=== PATIENT | female | born 1985 | race Caucasian/White ===

== ENCOUNTER 2022-05-29 19:58 | Emergency (ER) | payer SELFPAY ==
[2022-05-29 20:05] VITALS: BP 128/72; PULSE 90; RESP 20; BMI 28.3
[2022-05-29] MEDS ORDERED: KETOROLAC TROMETHAMINE 30 MG/1 ML VIAL IM ONE (20:44)
[2022-05-29] MEDS ORDERED: ACETAMINOPHEN 325 MG TABLET (FP) PO ONE (21:25)
[2022-05-29] MEDS ORDERED: ACETAMINOPHEN 325 MG TABLET (FP) ONE (21:31)
== END 2022-05-29 23:11 | disposition home or self-care (01) ==
LOC: JER 19:58
DX: S63.501A Unspecified sprain of right wrist, initial encounter (principal); Y99.8 Other external cause status
CPT/HCPCS: 73070-TC-RT-FY; 73090-TC-RT-FY; 73110-TC-RT-FY; 73130-TC-RT-FY; 99284-25

== ENCOUNTER 2022-06-01 19:25 | Emergency (ER) | payer SELFPAY ==
[2022-06-01 19:43] VITALS: BP 122/78; PULSE 85; RESP 20; TEMP 98.2; BMI 31.4
== END 2022-06-01 22:57 | disposition home or self-care (01) ==
LOC: JERFT 19:25
DX: S63.501A Unspecified sprain of right wrist, initial encounter (principal); X50.0XXA Overexertion from strenuous movement or load, initial encounter
CPT/HCPCS: 73110-TC-RT-FY; 73130-TC-RT-FY; 99283-25

== ENCOUNTER 2022-06-15 17:15 | Emergency (ER) | payer OTHER ==
[2022-06-15 17:51] VITALS: BP 136/84; PULSE 99; RESP 17; TEMP 97.8; BMI 32.4
== END 2022-06-15 21:07 | disposition home or self-care (01) ==
LOC: JERFT 17:15 → JER 17:15 → JERFT 21:07
DX: G56.01 Carpal tunnel syndrome, right upper limb (principal)
CPT/HCPCS: 99281-25

== ENCOUNTER 2022-06-26 21:56 | Emergency (ER) | payer OTHER ==
[2022-06-26] MEDS ORDERED: LIDOCAINE PATCH REMOVAL MC SCH (22:00)
[2022-06-26 22:05] VITALS: BP 130/90; PULSE 74; RESP 18; TEMP 98; BMI 32.4
[2022-06-26] MEDS ORDERED: METHOCARBAMOL 500 MG TABLET PO ONE (22:40)
[2022-06-26] MEDS ORDERED: ACETAMINOPHEN 500 MG TABLET (FP) PO ONE (22:40)
[2022-06-26] MEDS ORDERED: IBUPROFEN 600 MG TABLET (FP) PO ONE ×2 (22:40→23:15)
[2022-06-26] MEDS ORDERED: LIDOCAINE 5% TOPICAL PATCH TP ONE (22:41)
[2022-06-26] MEDS ORDERED: METHOCARBAMOL 500 MG TABLET ONE (23:15)
[2022-06-26] MEDS ORDERED: LIDOCAINE 5% TOPICAL PATCH ONE (23:16)
[2022-06-26] MEDS ORDERED: ACETAMINOPHEN 325 MG TABLET (FP) ONE (23:16)
== END 2022-06-27 00:34 | disposition home or self-care (01) ==
LOC: JER 21:56
DX: M62.838 Other muscle spasm (principal)
CPT/HCPCS: 71045-TC-FY; 71101-TC-RT-FY; 99284-25

== ENCOUNTER 2022-08-25 20:02 | Emergency (ER) | payer OTHER ==
[2022-08-25 20:14] VITALS: BP 124/71; PULSE 86; RESP 18; TEMP 98.5; BMI 31.4
== END 2022-08-25 21:42 | disposition home or self-care (01) ==
LOC: JERFT 20:02
DX: L50.9 Urticaria, unspecified (principal)
CPT/HCPCS: 99283-25

== ENCOUNTER 2022-08-26 18:49 | Emergency (ER) | payer OTHER ==
[2022-08-26 18:56] VITALS: BP 110/64; PULSE 85; RESP 17; TEMP 98.2; BMI 31.4
[2022-08-26] MEDS ORDERED: predniSONE 20 MG TABLET (UD) PO ONE (20:18)
[2022-08-26] MEDS ORDERED: predniSONE 10 MG TABLET (UD) ONE (20:18)
[2022-08-26] MEDS ORDERED: predniSONE 20 MG TABLET (UD) ONE (20:19)
== END 2022-08-26 21:25 | disposition home or self-care (01) ==
LOC: JERFT 18:49 → JER 18:49 → JERFT 19:49
DX: R21 Rash and other nonspecific skin eruption (principal)
CPT/HCPCS: 99283-25

== ENCOUNTER 2022-09-03 10:03 | Emergency (ER) | payer OTHER ==
[2022-09-03 10:13] VITALS: BP 110/60; PULSE 96; RESP 18; TEMP 98.1; BMI 31.4
[2022-09-03] MEDS ORDERED: IBUPROFEN 600 MG TABLET (FP) PO ONE (10:54)
== END 2022-09-03 11:51 | disposition home or self-care (01) ==
LOC: JERFT 10:03
DX: S92.414A Nondisplaced fracture of proximal phalanx of right great toe, initial encounter for closed fracture (principal); S90.31XA Contusion of right foot, initial encounter; V00.818A Other accident with wheelchair (powered), initial encounter
CPT/HCPCS: 73630-TC-LT; 99283-25

== ENCOUNTER 2022-09-03 19:08 | Emergency (ER) | payer OTHER ==
[2022-09-03 19:17] VITALS: BP 123/84; PULSE 112; RESP 18; TEMP 98; BMI 31.4
[2022-09-03] MEDS ORDERED: KETOROLAC TROMETHAMINE 30 MG/1 ML VIAL IM ONE (20:35)
[2022-09-03] MEDS ORDERED: KETOROLAC TROMETHAMINE 30 MG/1 ML VIAL ONE (20:44)
== END 2022-09-03 21:52 | disposition home or self-care (01) ==
LOC: JERFT 19:08
PROC: 3E0233Z Introduction of Anti-inflammatory into Muscle, Percutaneous Approach (ICD-10-PCS; principal; 2022-09-03)
DX: M79.672 Pain in left foot (principal)
CPT/HCPCS: 96372; 99284-25

== ENCOUNTER 2022-10-06 19:43 | Emergency (ER) | payer OTHER ==
[2022-10-06 19:46] VITALS: BP 136/96; PULSE 94; RESP 18; TEMP 98.5; BMI 33.5
[2022-10-06] MEDS ORDERED: CLINDAMYCIN HCL 150 MG CAPSULE (FP) PO ONE (22:15)
[2022-10-06] MEDS ORDERED: CLINDAMYCIN HCL 150 MG CAPSULE (FP) ONE (22:20)
== END 2022-10-06 22:32 | disposition home or self-care (01) ==
LOC: JERFT 19:43
DX: N61.1 Abscess of the breast and nipple (principal)
CPT/HCPCS: 76642-TC-LT; 93005; 93010; 99284-25

== ENCOUNTER 2022-11-05 12:46 | Emergency (ER) | payer OTHER ==
[2022-11-05 13:08] VITALS: RESP 20; BMI 31.4
[2022-11-05] MEDS ORDERED: ACETAMINOPHEN 1000 MG/100 ML BAG IVPB ONE (13:58)
[2022-11-05] MEDS ORDERED: ACETAMINOPHEN INJECTION 100 ML IVPB ONE (14:40)
[2022-11-05] MEDS ORDERED: LACTATED RINGERS SOLUTION 1,000 ML/1,000 ML INFUS.BAG IV STA (14:56)
[2022-11-05 15:27] LABS: BASO % 0.8 % (0-2.0); EOS % 0.3 % (0-4.5); HEMATOCRIT 39.5 % (32.4-45.2); LYMPH % 7.7 % (8-40); MCH 29.1 pg (25.7-33.7); MCHC 32.9 g/dl (32.0-36.0); MEAN CELL VOLUME 88.5 fl (80-96); MEAN PLT VOLUME 9.2 fl (7.5-11.1); MONO % 6.2 % (3.8-10.2); PLATELET COUNT 295 10^3/uL (134-434); RBC 4.46 M/mm3 (3.60-5.2); RDW 13.4 % (11.6-15.6)
[2022-11-05 15:31] LABS: EPI CELLS >36 /uL (0-25.1); HYALINE CASTS 2 /uL (0-3.1); URINE APPEARANCE CLOUDY; URINE BACTERIA >9,000 /uL (0-1359); URINE BILIRUBIN NEGATIVE (NEGATIVE); URINE COLOR YELLOW; URINE GLUCOSE (UA) NEGATIVE (NEGATIVE); URINE KETONE NEGATIVE (NEGATIVE); URINE LEUK ESTERASE 3+ (NEGATIVE); URINE NITRITE POSITIVE (NEGATIVE); URINE PROTEIN 1+ (NEGATIVE); URINE RBC 49 /uL (0-23.9); URINE UROBILINOGEN 0.2 mg/dL (0.2-1.0); URINE WBC 960 /uL (0-25.8)
[2022-11-05 15:46] LABS: CHLORIDE 104 mmol/L (98-107); SODIUM 134 mmol/L (136-145)
[2022-11-05 15:48] LABS: ALBUMIN 3.5 g/dl (3.4-5.0); ANION GAP 9 MMOL/L (8-16); BLOOD UREA NITROGEN 9.4 mg/dL (7-18); CALCIUM 8.7 mg/dL (8.5-10.1); CO2 21 mmol/L (21-32); GLUCOSE,RANDOM 82 mg/dL (74-106)
[2022-11-05 15:51] LABS: CREATININE 0.8 mg/dL (0.55-1.3); SGOT/AST 13 U/L (15-37); SGPT/ALT 15 U/L (13-61)
[2022-11-05 15:53] LABS: BILIRUBIN,TOTAL 0.6 mg/dL (0.2-1); TOT PROT 7.5 g/dl (6.4-8.2)
[2022-11-05 15:54] LABS: ALK PHOS 96 U/L (45-117)
[2022-11-05] MEDS ORDERED: CEFTRIAXONE 1 GM in DEXTROSE 5%-WATER - 100 ML IVPB ONE ×2 (16:25→17:12)
[2022-11-05] MEDS ORDERED: CEFTRIAXONE 1 GM/50 ML BAG ONE ×2 (16:37→17:16)
[2022-11-05 17:01] VITALS: BP 110/65; PULSE 109
[2022-11-05 17:30] VITALS: TEMP 100.4
== END 2022-11-05 18:25 | disposition left against medical advice (07) ==
LOC: JER 12:46 → UNDOADMIN 16:50 → JERBED 16:50 → JER 18:25
PROC: 3E033GC Introduction of Other Therapeutic Substance into Peripheral Vein, Percutaneous Approach (ICD-10-PCS; principal; 2022-11-05)
DX: N12 Tubulo-interstitial nephritis, not specified as acute or chronic (principal)
CPT/HCPCS: 0241U-QW; 71045-TC-FY; 76775-TC; 80053; 81003; 82553; 83605; 84484; 85025; 86850; 86900; 86901; 87040; 87086; 87186; 93005; 93010; 96361; 96365; 96375; 96376; 99285-25

== ENCOUNTER 2022-11-24 18:26 | Emergency (ER) | payer OTHER ==
[2022-11-24 19:02] VITALS: BP 138/84; PULSE 84; RESP 18; TEMP 97.5; BMI 32.3
[2022-11-24] MEDS ORDERED: KETOROLAC TROMETHAMINE 30 MG/1 ML VIAL IM ONE (20:23)
[2022-11-24] MEDS ORDERED: KETOROLAC TROMETHAMINE 30 MG/1 ML VIAL ONE (20:36)
== END 2022-11-24 21:16 | disposition home or self-care (01) ==
LOC: JERFT 18:26 → JER 18:26 → JERFT 21:16
DX: M54.50 Low back pain, unspecified (principal)
CPT/HCPCS: 72070-TC-FY; 72100-TC-FY; 99283-25

== ENCOUNTER 2022-12-03 19:16 | Emergency (ER) | payer OTHER ==
[2022-12-03 19:23] VITALS: BP 119/86; PULSE 89; RESP 17; TEMP 98.2; BMI 31.3
[2022-12-03] MEDS ORDERED: predniSONE 20 MG TABLET (UD) PO ONE (22:50)
[2022-12-03] MEDS ORDERED: predniSONE 20 MG TABLET (UD) ONE (22:54)
== END 2022-12-03 23:50 | disposition home or self-care (01) ==
LOC: JERFT 19:16
DX: L23.9 Allergic contact dermatitis, unspecified cause (principal)
CPT/HCPCS: 99283-25

== ENCOUNTER 2022-12-13 20:39 | Emergency (ER) | payer OTHER ==
[2022-12-13 20:49] VITALS: BP 139/96; PULSE 101; RESP 18; TEMP 98.2; BMI 31.4
[2022-12-13] MEDS ORDERED: CEFTRIAXONE 1 GM in DEXTROSE 5%-WATER - 100 ML IVPB ONE (21:12)
[2022-12-13] MEDS ORDERED: CEFTRIAXONE 1 GM/50 ML BAG ONE (21:49)
[2022-12-13 22:29] LABS: BASO % 0.8 % (0-2.0); EOS % 2.4 % (0-4.5); HEMATOCRIT 41.6 % (32.4-45.2); HEMOGLOBIN 14.5 GM/dL (10.7-15.3); LYMPH % 24.8 % (8-40); MCH 30.9 pg (25.7-33.7); MCHC 34.8 g/dl (32.0-36.0); MEAN CELL VOLUME 88.7 fl (80-96); MEAN PLT VOLUME 8.6 fl (7.5-11.1); MONO % 7.5 % (3.8-10.2); NEUT % 64.5 % (42.8-82.8); PLATELET COUNT 306 10^3/uL (134-434); RBC 4.69 M/mm3 (3.60-5.2); RDW 13.9 % (11.6-15.6); WHITE BLOOD COUNT 11.7 K/mm3 (4.0-10.0)
[2022-12-13 22:50] LABS: EPI CELLS >36 /uL (0-25.1); HYALINE CASTS 48 /uL (0-3.1); URINE APPEARANCE TURBID; URINE BACTERIA >9,000 /uL (0-1359); URINE BILIRUBIN NEGATIVE (NEGATIVE); URINE COLOR YELLOW; URINE GLUCOSE (UA) NEGATIVE (NEGATIVE); URINE KETONE NEGATIVE (NEGATIVE); URINE LEUK ESTERASE 3+ (NEGATIVE); URINE NITRITE POSITIVE (NEGATIVE); URINE PROTEIN NEGATIVE (NEGATIVE); URINE RBC 29 /uL (0-23.9); URINE UROBILINOGEN 0.2 mg/dL (0.2-1.0); URINE WBC 944 /uL (0-25.8)
[2022-12-13 22:53] LABS: CHLORIDE 106 mmol/L (98-107); SODIUM 134 mmol/L (136-145)
[2022-12-13 22:55] LABS: ALBUMIN 3.4 g/dl (3.4-5.0); CO2 23 mmol/L (21-32); GLUCOSE,RANDOM 86 mg/dL (74-106)
[2022-12-13 22:58] LABS: CREATININE 1.1 mg/dL (0.55-1.3); SGOT/AST 88 U/L (15-37)
[2022-12-13 23:00] LABS: BILIRUBIN,TOTAL 0.3 mg/dL (0.2-1)
[2022-12-13 23:01] LABS: ALK PHOS 98 U/L (45-117)
[2022-12-13 23:03] LABS: ANION GAP 4 MMOL/L (8-16); SGPT/ALT 30 U/L (13-61)
[2022-12-13 23:38] LABS: CALCIUM 8.9 mg/dL (8.5-10.1)
[2022-12-13 23:39] LABS: BLOOD UREA NITROGEN 21.6 mg/dL (7-18)
== END 2022-12-13 23:39 | disposition home or self-care (01) ==
LOC: JER 20:39
PROC: 3E033GC Introduction of Other Therapeutic Substance into Peripheral Vein, Percutaneous Approach (ICD-10-PCS; principal; 2022-12-13)
DX: N39.0 Urinary tract infection, site not specified (principal)
CPT/HCPCS: 36415; 80048; 80053; 81003; 84703; 85025; 87086; 87186; 96365; 99284-25

== ENCOUNTER 2022-12-26 18:21 | Emergency (ER) | payer OTHER ==
[2022-12-26 18:53] VITALS: BP 160/100; PULSE 65; RESP 18; TEMP 98; BMI 31.4
[2022-12-26] MEDS ORDERED: ACETAMINOPHEN 325 MG TABLET (FP) PO ONE (20:24)
[2022-12-26] MEDS ORDERED: ACETAMINOPHEN 325 MG TABLET (FP) ONE (20:56)
[2022-12-26] MEDS ORDERED: IBUPROFEN 600 MG TABLET (FP) PO ONE (20:57)
[2022-12-26] MEDS ORDERED: IBUPROFEN 400 MG TABLET (FP) PO ONE (21:00)
== END 2022-12-26 21:25 | disposition home or self-care (01) ==
LOC: JER 18:21
DX: M79.642 Pain in left hand (principal)
CPT/HCPCS: 73090-TC-LT-FY; 73110-TC-LT-FY; 73130-TC-LT-FY; 99283-25

== ENCOUNTER 2023-01-03 10:39 | Emergency (ER) | payer OTHER ==
[2023-01-03 10:51] VITALS: BMI 31.4
[2023-01-03] MEDS ORDERED: ACETAMINOPHEN 500 MG TABLET (FP) PO ONE (11:51)
[2023-01-03] MEDS ORDERED: ONDANSETRON *ODT* 4 MG TABLET SL ONE (11:51)
[2023-01-03] MEDS ORDERED: ONDANSETRON *ODT* 4 MG TABLET ONE (11:54)
[2023-01-03] MEDS ORDERED: ACETAMINOPHEN 325 MG TABLET (FP) ONE (11:55)
[2023-01-03 12:23] LABS: HCG,QUALITATIVE URINE Negative
[2023-01-03 12:27] LABS: EPI CELLS >36 /uL (0-25.1); HYALINE CASTS 2 /uL (0-3.1); PH,URINE 7.5 (5.0-8.0); URINE APPEARANCE CLOUDY; URINE BACTERIA >9,000 /uL (0-1359); URINE BILIRUBIN NEGATIVE (NEGATIVE); URINE COLOR YELLOW; URINE GLUCOSE (UA) NEGATIVE (NEGATIVE); URINE KETONE NEGATIVE (NEGATIVE); URINE LEUK ESTERASE 2+ (NEGATIVE); URINE NITRITE POSITIVE (NEGATIVE); URINE PROTEIN TRACE (NEGATIVE); URINE RBC 17 /uL (0-23.9); URINE UROBILINOGEN 0.2 mg/dL (0.2-1.0); URINE WBC 656 /uL (0-25.8)
[2023-01-03 12:34] LABS: YEAST NEGATIVE (NEGATIVE)
[2023-01-03 14:35] VITALS: BP 114/68; PULSE 79; RESP 16; TEMP 97.7
== END 2023-01-03 14:35 | disposition home or self-care (01) ==
LOC: JER 10:39
DX: N39.0 Urinary tract infection, site not specified (principal); R11.0 Nausea; R30.0 Dysuria
CPT/HCPCS: 81003; 84703; 87086; 87186; 99283-25; Q0162

== ENCOUNTER 2023-01-15 20:30 | Emergency (ER) | payer OTHER ==
[2023-01-15 20:37] VITALS: BP 144/86; PULSE 84; RESP 20; TEMP 98.1; BMI 31.4
[2023-01-15] MEDS ORDERED: KETOROLAC TROMETHAMINE 30 MG/1 ML VIAL IM ONE (21:53)
[2023-01-15] MEDS ORDERED: KETOROLAC TROMETHAMINE 30 MG/1 ML VIAL ONE (21:56)
[2023-01-15] MEDS ORDERED: IBUPROFEN 400 MG TABLET (FP) PO ONE ×2 (22:23→22:25)
== END 2023-01-15 22:31 | disposition home or self-care (01) ==
LOC: JERFT 20:30
PROC: 3E0233Z Introduction of Anti-inflammatory into Muscle, Percutaneous Approach (ICD-10-PCS; principal; 2023-01-15)
DX: S69.92XA Unspecified injury of left wrist, hand and finger(s), initial encounter (principal); X58.XXXA Exposure to other specified factors, initial encounter
CPT/HCPCS: 73110-TC-LT-FY; 96372; 99284-25

== ENCOUNTER 2023-01-18 15:34 | Emergency (ER) | payer OTHER ==
[2023-01-18 15:38] VITALS: BP 114/79; PULSE 75; RESP 18; TEMP 98.1; BMI 31.4
[2023-01-18] MEDS ORDERED: ACETAMINOPHEN 500 MG TABLET (FP) PO ONE (16:12)
[2023-01-18] MEDS ORDERED: ACETAMINOPHEN 500 MG TABLET (FP) ONE (16:21)
[2023-01-18 16:48] LABS: THROAT:GRP A STREP NOT DETECTED (NOTDETECTED)
== END 2023-01-18 17:30 | disposition home or self-care (01) ==
LOC: JER 15:34
DX: J01.90 Acute sinusitis, unspecified (principal); J02.9 Acute pharyngitis, unspecified; R09.81 Nasal congestion; R50.9 Fever, unspecified; Z20.822 Contact with and (suspected) exposure to COVID-19
CPT/HCPCS: 0241U-QW; 87651; 99283-25

== ENCOUNTER 2023-01-25 18:58 | Emergency (ER) | payer OTHER ==
[2023-01-25 19:10] VITALS: BP 124/74; PULSE 84; RESP 18; TEMP 98.2; BMI 31.4
[2023-01-25 20:38] LABS: EPI CELLS >36 /uL (0-25.1); HYALINE CASTS 4 /uL (0-3.1); PH,URINE 6.5 (5.0-8.0); URINE APPEARANCE TURBID; URINE BACTERIA >9,000 /uL (0-1359); URINE BILIRUBIN NEGATIVE (NEGATIVE); URINE COLOR YELLOW; URINE GLUCOSE (UA) NEGATIVE (NEGATIVE); URINE KETONE NEGATIVE (NEGATIVE); URINE LEUK ESTERASE 3+ (NEGATIVE); URINE NITRITE POSITIVE (NEGATIVE); URINE PROTEIN NEGATIVE (NEGATIVE); URINE RBC 21 /uL (0-23.9); URINE UROBILINOGEN 0.2 mg/dL (0.2-1.0); URINE WBC 689 /uL (0-25.8)
[2023-01-25] MEDS ORDERED: CEFUROXIME AXETIL 500 MG TABLET PO ONE (20:55)
== END 2023-01-25 21:54 | disposition home or self-care (01) ==
LOC: JER 18:58
PROC: 0T9B70Z Drainage of Bladder with Drainage Device, Via Natural or Artificial Opening (ICD-10-PCS; principal; 2023-01-25)
DX: R33.9 Retention of urine, unspecified (principal)
CPT/HCPCS: 51701; 76775-TC; 76856-TC; 81003; 87086; 87186; 99284-25

== ENCOUNTER 2023-03-05 09:33 | Emergency (ER) | payer OTHER ==
[2023-03-05] MEDS ORDERED: IBUPROFEN 400 MG TABLET (FP) PO PRN (09:45)
[2023-03-05] MEDS ORDERED: ACETAMINOPHEN 500 MG TABLET (FP) PO ONE (09:45)
[2023-03-05] MEDS ORDERED: LIDOCAINE 5% TOPICAL PATCH TP ONE (09:45)
[2023-03-05] MEDS ORDERED: LIDOCAINE 5% TOPICAL PATCH ONE (09:56)
[2023-03-05] MEDS ORDERED: ACETAMINOPHEN 325 MG TABLET (FP) ONE (09:56)
[2023-03-05 10:30] VITALS: RESP 18; TEMP 98.1; BMI 32.4
[2023-03-05 12:21] VITALS: BP 119/73; PULSE 78
[2023-03-05] MEDS ORDERED: LIDOCAINE PATCH REMOVAL MC ONE (22:00)
== END 2023-03-05 13:06 | disposition home or self-care (01) ==
LOC: JER 09:33
DX: S22.31XA Fracture of one rib, right side, initial encounter for closed fracture (principal); W22.8XXA Striking against or struck by other objects, initial encounter; W05.0XXA Fall from non-moving wheelchair, initial encounter
CPT/HCPCS: 71046-TC-FY; 71101-TC-RT-FY; 99284-25

== ENCOUNTER 2023-03-10 17:16 | Emergency (ER) | payer OTHER ==
[2023-03-10 17:27] VITALS: BP 158/91; PULSE 69; RESP 16; TEMP 98.4; BMI 38.9
[2023-03-10] MEDS ORDERED: IBUPROFEN 600 MG TABLET (FP) PO ONE ×3 (18:13→18:28)
[2023-03-10] MEDS ORDERED: LIDOCAINE 5% TOPICAL PATCH TP ONE (18:13)
[2023-03-10] MEDS ORDERED: LIDOCAINE 5% TOPICAL PATCH ONE (18:23)
[2023-03-10] MEDS ORDERED: LIDOCAINE PATCH REMOVAL MC SCH (22:00)
== END 2023-03-10 19:30 | disposition home or self-care (01) ==
LOC: JERFT 17:16
DX: R07.81 Pleurodynia (principal); R07.9 Chest pain, unspecified; M54.9 Dorsalgia, unspecified; W05.0XXA Fall from non-moving wheelchair, initial encounter; Y93.I9 Activity, other involving external motion; Y92.009 Unspecified place in unspecified non-institutional (private) residence as the place of occurrence of the external cause
CPT/HCPCS: 71101-TC-RT-FY; 99283-25

== ENCOUNTER 2023-04-03 16:50 | Emergency (ER) | payer OTHER ==
[2023-04-03 17:04] VITALS: BP 139/87; PULSE 99; RESP 18; TEMP 98; BMI 34.6
[2023-04-03 19:35] LABS: THROAT:GRP A STREP NOT DETECTED (NOTDETECTED)
== END 2023-04-03 21:01 | disposition home or self-care (01) ==
LOC: JERFT 16:50
DX: H57.11 Ocular pain, right eye (principal); R21 Rash and other nonspecific skin eruption; H10.9 Unspecified conjunctivitis; Z20.822 Contact with and (suspected) exposure to COVID-19
CPT/HCPCS: 0241U-QW; 87070; 87651; 99283-25

== ENCOUNTER 2023-04-10 09:16 | Emergency (ER) | payer OTHER ==
[2023-04-10 09:25] VITALS: RESP 20
[2023-04-10] MEDS ORDERED: ACETAMINOPHEN 1000 MG/100 ML BAG IVPB ONE (09:52)
[2023-04-10] MEDS ORDERED: METOCLOPRAMIDE HCL INJECTION 10 MG/2 ML VIAL IVPUSH ONE (09:53)
[2023-04-10] MEDS ORDERED: LACTATED RINGERS SOLUTION 1,000 ML/1,000 ML INFUS.BAG IV SCH (10:00)
[2023-04-10] MEDS ORDERED: METOCLOPRAMIDE HCL INJECTION 10 MG/2 ML VIAL ONE (10:07)
[2023-04-10] MEDS ORDERED: ACETAMINOPHEN INJECTION 100 ML IVPB ONE (10:08)
[2023-04-10 11:13] LABS: BASO % 0.4 % (0-2.0); EOS % 0.2 % (0-4.5); HEMATOCRIT 44.7 % (32.4-45.2); LYMPH % 10.2 % (8-40); MCH 29.1 pg (25.7-33.7); MCHC 33.5 g/dl (32.0-36.0); MEAN CELL VOLUME 86.9 fl (80-96); MEAN PLT VOLUME 8.5 fl (7.5-11.1); MONO % 3.1 % (3.8-10.2); NEUT % 86.1 % (42.8-82.8); PLATELET COUNT 398 10^3/uL (134-434); RBC 5.14 M/mm3 (3.60-5.2); RDW 13.4 % (11.6-15.6); WHITE BLOOD COUNT 15.8 K/mm3 (4.0-10.0)
[2023-04-10 12:07] LABS: POTASSIUM 4.9 mmol/L (3.5-5.1)
[2023-04-10 12:09] LABS: CALCIUM 9.9 mg/dL (8.5-10.1)
[2023-04-10 12:10] LABS: ALBUMIN 4.1 g/dl (3.4-5.0)
[2023-04-10 12:12] LABS: CREATININE 0.9 mg/dL (0.55-1.3)
[2023-04-10 12:14] LABS: BILIRUBIN,TOTAL 0.6 mg/dL (0.2-1); TOT PROT 8.6 g/dl (6.4-8.2)
[2023-04-10 13:16] LABS: EPI CELLS >36 /uL (0-25.1); HYALINE CASTS 1 /uL (0-3.1); PH,URINE 5.5 (5.0-8.0); URINE APPEARANCE CLOUDY; URINE BACTERIA >9,000 /uL (0-1359); URINE BILIRUBIN NEGATIVE (NEGATIVE); URINE COLOR YELLOW; URINE GLUCOSE (UA) NEGATIVE (NEGATIVE); URINE KETONE 1+ (NEGATIVE); URINE LEUK ESTERASE 1+ (NEGATIVE); URINE NITRITE POSITIVE (NEGATIVE); URINE PROTEIN NEGATIVE (NEGATIVE); URINE RBC 15 /uL (0-23.9); URINE UROBILINOGEN 0.2 mg/dL (0.2-1.0); URINE WBC 300 /uL (0-25.8)
[2023-04-10] MEDS ORDERED: CEFTRIAXONE 1,000 MG in DEXTROSE 5%-WATER - 50 ML IVPB ONE (13:19)
[2023-04-10] MEDS ORDERED: DEXTROSE 5% IVPB ONE (13:25)
[2023-04-10] MEDS ORDERED: CEFUROXIME SODIUM IVPB ONE (13:25)
[2023-04-10] MEDS ORDERED: WATER IVPB ONE (13:25)
[2023-04-10] MEDS ORDERED: CEFUROXIME NA 750 MG VIAL ONE (13:37)
[2023-04-10 13:39] VITALS: BP 128/91; PULSE 81; TEMP 97.8
== END 2023-04-10 14:10 | disposition home or self-care (01) ==
LOC: JER 09:16
PROC: 3E03329 Introduction of Other Anti-infective into Peripheral Vein, Percutaneous Approach (ICD-10-PCS; principal; 2023-04-10)
PROC: 3E033GC Introduction of Other Therapeutic Substance into Peripheral Vein, Percutaneous Approach (ICD-10-PCS; 2023-04-10)
PROC: 3E033GC Introduction of Other Therapeutic Substance into Peripheral Vein, Percutaneous Approach (ICD-10-PCS; 2023-04-10)
DX: R11.2 Nausea with vomiting, unspecified (principal); G43.909 Migraine, unspecified, not intractable, without status migrainosus; N39.0 Urinary tract infection, site not specified
CPT/HCPCS: 36415; 80053; 81003; 83735; 85025; 87086; 87186; 96365; 96375; 99284-25

== ENCOUNTER 2023-06-01 13:55 | Emergency (ER) | payer OTHER ==
[2023-06-01 14:01] VITALS: BMI 33.2
[2023-06-01] MEDS ORDERED: SODIUM CHLORIDE 0.9% 1000 ML INFUS.BAG IV ONE (15:26)
[2023-06-01] MEDS ORDERED: ONDANSETRON 4 MG/2 ML VIAL IVPUSH ONE (15:26)
[2023-06-01 15:33] VITALS: BP 135/93; PULSE 83; RESP 16; TEMP 98.1
[2023-06-01 15:37] LABS: EPI CELLS >36 /uL (0-25.1); HYALINE CASTS 1 /uL (0-3.1); PH,URINE 6.5 (5.0-8.0); URINE APPEARANCE CLEAR; URINE BACTERIA >9,000 /uL (0-1359); URINE BILIRUBIN NEGATIVE (NEGATIVE); URINE COLOR YELLOW; URINE GLUCOSE (UA) NEGATIVE (NEGATIVE); URINE KETONE TRACE (NEGATIVE); URINE LEUK ESTERASE 2+ (NEGATIVE); URINE NITRITE POSITIVE (NEGATIVE); URINE PROTEIN NEGATIVE (NEGATIVE); URINE RBC 17 /uL (0-23.9); URINE UROBILINOGEN 0.2 mg/dL (0.2-1.0); URINE WBC 81 /uL (0-25.8)
[2023-06-01 15:38] LABS: HCG,QUALITATIVE URINE Negative
== END 2023-06-01 16:10 | disposition left against medical advice (07) ==
LOC: JER 13:55
PROC: 3E033NZ Introduction of Analgesics, Hypnotics, Sedatives into Peripheral Vein, Percutaneous Approach (ICD-10-PCS; principal; 2023-06-01)
DX: N39.0 Urinary tract infection, site not specified (principal); R11.10 Vomiting, unspecified
CPT/HCPCS: 81003; 82962; 84703; 87086; 87186; 96374; 99284-25

== ENCOUNTER 2023-06-08 19:47 | Emergency (ER) | payer OTHER ==
[2023-06-08 20:00] VITALS: BP 110/68; PULSE 89; RESP 20; TEMP 98.6; BMI 32.2
[2023-06-08] MEDS ORDERED: predniSONE 20 MG TABLET (UD) PO ONE (21:06)
[2023-06-08] MEDS ORDERED: ALBUTEROL SO4 0.083% IH SOL 2.5 MG/3 ML VIAL.NEB. NEB ONE (21:39)
[2023-06-08] MEDS ORDERED: predniSONE 20 MG TABLET (UD) ONE (21:39)
[2023-06-08] MEDS: ALBUTEROL SO4 2.5/IPRATROPIUM 0.5 INH SOL 3 ML VIAL.NEB. NEB SCH ×2 (21:54→21:55)
== END 2023-06-09 00:19 | disposition home or self-care (01) ==
LOC: JER 19:47
PROC: 3E0F7GC Introduction of Other Therapeutic Substance into Respiratory Tract, Via Natural or Artificial Opening (ICD-10-PCS; principal; 2023-06-08)
DX: R06.02 Shortness of breath (principal); R05.9 Cough, unspecified; J45.909 Unspecified asthma, uncomplicated; Z20.822 Contact with and (suspected) exposure to COVID-19
CPT/HCPCS: 0241U-QW; 71045-TC-FY; 94640; 99284-25

== ENCOUNTER 2023-06-25 16:09 | Emergency (ER) | payer OTHER ==
[2023-06-25 16:42] VITALS: TEMP 98.2
[2023-06-25 18:02] VITALS: BP 137/88; PULSE 90; RESP 14
[2023-06-25 18:30] LABS: EPI CELLS 13 /uL (0-25.1); HYALINE CASTS 1 /uL (0-3.1); URINE APPEARANCE CLOUDY; URINE BACTERIA >9,000 /uL (0-1359); URINE BILIRUBIN NEGATIVE (NEGATIVE); URINE COLOR YELLOW; URINE GLUCOSE (UA) NEGATIVE (NEGATIVE); URINE KETONE NEGATIVE (NEGATIVE); URINE LEUK ESTERASE 2+ (NEGATIVE); URINE NITRITE NEGATIVE (NEGATIVE); URINE PROTEIN NEGATIVE (NEGATIVE); URINE RBC 10 /uL (0-23.9); URINE UROBILINOGEN 0.2 mg/dL (0.2-1.0); URINE WBC 220 /uL (0-25.8)
[2023-06-25 18:55] LABS: EOS % 4.4 % (0-4.5); HEMATOCRIT 39.9 % (32.4-45.2); HEMOGLOBIN 13.6 GM/dL (10.7-15.3); LYMPH % 21.1 % (8-40); MCH 30.4 pg (25.7-33.7); MCHC 34.1 g/dl (32.0-36.0); MEAN CELL VOLUME 89.2 fl (80-96); MEAN PLT VOLUME 9.5 fl (7.5-11.1); MONO % 7.3 % (3.8-10.2); NEUT % 66.2 % (42.8-82.8); PLATELET COUNT 308 10^3/uL (134-434); RBC 4.47 M/mm3 (3.60-5.2); RDW 14.3 % (11.6-15.6); WHITE BLOOD COUNT 10.3 K/mm3 (4.0-10.0)
[2023-06-25 19:02] LABS: INR 1.02 (0.83-1.09); PROTHROMBIN TIME (PATIENT) 11.8 SEC (9.7-13.0)
[2023-06-25 19:05] LABS: ACTIVATED PTT 33.2 SECONDS (25.2-36.5)
[2023-06-25 19:09] LABS: CHLORIDE 109 mmol/L (98-107); POTASSIUM 4.3 mmol/L (3.5-5.1); SODIUM 140 mmol/L (136-145)
[2023-06-25 19:13] LABS: CALCIUM 8.4 mg/dL (8.5-10.1)
[2023-06-25 19:14] LABS: ALBUMIN 3.6 g/dl (3.4-5.0); ANION GAP 7 MMOL/L (8-16); CO2 23 mmol/L (21-32)
[2023-06-25 19:15] LABS: BLOOD UREA NITROGEN 11.1 mg/dL (7-18); GLUCOSE,RANDOM 78 mg/dL (74-106)
[2023-06-25 19:17] LABS: CREATININE 0.9 mg/dL (0.55-1.3); SGOT/AST 19 U/L (15-37); SGPT/ALT 21 U/L (13-61)
[2023-06-25 19:19] LABS: CHOLESTEROL 187 mg/dL (50-200); LDL CHOLESTEROL (ONLY SJRH) 126 mg/dL (5-100); TOT PROT 7.1 g/dl (6.4-8.2)
[2023-06-25 19:20] LABS: BILIRUBIN,TOTAL 0.3 mg/dL (0.2-1)
[2023-06-25 19:21] LABS: ALK PHOS 98 U/L (45-117); HDL CHOLESTEROL 41 mg/dL (40-60)
== END 2023-06-25 19:13 | disposition left against medical advice (07) ==
LOC: JER 16:09
DX: M54.9 Dorsalgia, unspecified (principal); R53.1 Weakness; R20.2 Paresthesia of skin; M25.521 Pain in right elbow; M25.531 Pain in right wrist
CPT/HCPCS: 36415; 70450-TC; 80053; 80061; 81003; 82550; 82962; 83036; 84484; 85025; 85610; 85730; 86850; 86900; 86901; 93005; 93010; 99285-25

== ENCOUNTER 2023-06-30 19:29 | Observation (INO) | payer OTHER ==
[2023-06-30 19:41] VITALS: BMI 25.5
[2023-06-30] MEDS ORDERED: SUCRALFATE 1 GM TABLET (FP) PO ONE (20:25)
[2023-06-30] MEDS ORDERED: ONDANSETRON 4 MG/2 ML VIAL IVPUSH ONE (20:25)
[2023-06-30] MEDS ORDERED: MAG HYDROX/AL HYDROX/SIMETH -MYLANTA- ORAL SUSPENSION PO ONE (20:25)
[2023-06-30] MEDS ORDERED: LACTATED RINGERS SOLUTION 1000 ML INFUS.BAG IV ONE (20:25)
[2023-06-30] MEDS ORDERED: ACETAMINOPHEN 1000 MG/100 ML BAG IVPB ONE (20:25)
[2023-06-30] MEDS ORDERED: FAMOTIDINE 20 MG/50 ML IVPB 20 MG/50 ML MG IVPB ONE ×2 (20:25→22:44)
[2023-06-30 22:06] LABS: HEMOGLOBIN 15.5 GM/dL (10.7-15.3); MCH 30.2 pg (25.7-33.7); MCHC 33.6 g/dl (32.0-36.0); MEAN CELL VOLUME 89.8 fl (80-96); MEAN PLT VOLUME 9.3 fl (7.5-11.1); PLATELET COUNT 380 10^3/uL (134-434); RBC 5.12 M/mm3 (3.60-5.2); WHITE BLOOD COUNT 14.8 K/mm3 (4.0-10.0)
[2023-06-30 22:17] LABS: POTASSIUM 4.1 mmol/L (3.5-5.1)
[2023-06-30 22:19] LABS: CALCIUM 9.2 mg/dL (8.5-10.1)
[2023-06-30 22:20] LABS: BLOOD UREA NITROGEN 17.2 mg/dL (7-18); MAGNESIUM 1.9 mg/dL (1.8-2.4)
[2023-06-30 22:24] LABS: BILIRUBIN,TOTAL 0.7 mg/dL (0.2-1); TOT PROT 8.6 g/dl (6.4-8.2)
[2023-06-30] MEDS ORDERED: SUCRALFATE 1 GM TABLET (FP) ONE (22:43)
[2023-06-30] MEDS ORDERED: ACETAMINOPHEN INJECTION 100 ML IVPB ONE (22:43)
[2023-06-30] MEDS ORDERED: MAG HYDROX/AL HYDROX/SIMETH 30 ML UNIT-DOSE CUP ONE (22:44)
[2023-06-30] MEDS ORDERED: ONDANSETRON 4 MG/2 ML VIAL ONE (22:44)
[2023-06-30 22:53] LABS: ANISOCYTOSIS 0; MACROCYTOSIS 0
[2023-07-01 08:15] LABS: URINE APPEARANCE CLOUDY; URINE BILIRUBIN NEGATIVE (NEGATIVE); URINE COLOR YELLOW; URINE GLUCOSE (UA) NEGATIVE (NEGATIVE); URINE KETONE 15 mg/dl (NEGATIVE)
[2023-07-01 08:16] LABS: PH,URINE 5.5 (5.0-8.0); URINE LEUK ESTERASE TRACE (NEGATIVE); URINE NITRITE POSITIVE (NEGATIVE); URINE PROTEIN TRACE (NEGATIVE); URINE UROBILINOGEN 1.055 mg/dL (0.2-1.0)
[2023-07-01] MEDS ORDERED: IMIPENEM/CILASTATIN SODIUM 500 MG in SODIUM CHLORIDE 100 ML IV ONE (08:44)
[2023-07-01] MEDS ORDERED: DEXTROSE 5%-0.45% SALINE 1,000 ML IV SCH (08:45)
[2023-07-01] MEDS ORDERED: ONDANSETRON 4 MG/2 ML VIAL IVPUSH PRN ×2 (10:20→15:04)
[2023-07-01] MEDS ORDERED: LACTATED RINGERS SOLUTION 1,000 ML/1,000 ML INFUS.BAG IV SCH ×2 (10:45→15:04)
[2023-07-01] MEDS ORDERED: INSULIN SLIDING SCALE (NOVOLOG) 1 VIAL SQ SCH (11:00)
[2023-07-01] MEDS ORDERED: BUPIVACAINE HCL/PF 0.25% (2.5MG/ML) 10 ML VIAL ONE (12:15)
[2023-07-01] MEDS ORDERED: BUPIVACAINE HCL/PF 0.25% (2.5MG/ML) 10 ML VIAL IJ ONE ×2 (12:27→14:08)
[2023-07-01] MEDS ORDERED: PROPOFOL 20 ML ONE (12:35)
[2023-07-01] MEDS ORDERED: ROCURONIUM BROMIDE 50 MG/5 ML SYRINGE ONE (12:35)
[2023-07-01] MEDS ORDERED: ALBUTEROL SO4 HFA INHALER IH ONE (13:25)
[2023-07-01] MEDS ORDERED: HYDROmorphone HCl 2 MG/ML VIAL ONE (13:38)
[2023-07-01] MEDS ORDERED: oxyCODONE HCL 5 MG TABLET PO PRN (15:05)
[2023-07-01] MEDS ORDERED: ACETAMINOPHEN 1000 MG/100 ML BAG IVPB SCH (15:15)
[2023-07-01 16:53] VITALS: RESP 20
[2023-07-01 17:46] VITALS: BP 111/97; PULSE 77; TEMP 97.2
[2023-07-01] MEDS ORDERED: HEPARIN NA (PORCINE) 5,000 UNITS/ML 1ML VIAL SQ SCH (22:00)
[2023-07-01] MEDS ORDERED: FAMOTIDINE 20 MG/50 ML IVPB 20 MG/50 ML MG IVPB SCH (22:00)
[2023-07-02] MEDS ORDERED: ERTAPENEM SODIUM 1 GM in SODIUM CHLORIDE 50 ML IVPB SCH ×2 (10:00→16:00)
[2023-07-02] MEDS ORDERED: ACETAMINOPHEN 325 MG TABLET (FP) PO PRN (13:00)
== END 2023-07-01 18:00 | disposition left against medical advice (07) | DRG 342 ==
LOC: JER 19:29 → JERBED 07-01 10:16 → INTOOBSV 07-01 10:16 → J8W 07-01 16:03 → JERBED 07-01 16:05
PROVIDERS: ADMIT Internal Medicine; ATTEND Internal Medicine
PROC: 0DTJ4ZZ Resection of Appendix, Percutaneous Endoscopic Approach (ICD-10-PCS; principal; 2023-07-01 13:00)
DX: K35.890 Other acute appendicitis without perforation or gangrene (principal); G82.20 Paraplegia, unspecified; R11.2 Nausea with vomiting, unspecified; I10 Essential (primary) hypertension; E11.9 Type 2 diabetes mellitus without complications; F17.210 Nicotine dependence, cigarettes, uncomplicated
CPT/HCPCS: 0241U-QW; 36415; 71045-TC-FY; 74177-TC; 76705-TC; 80053; 81003; 82962; 83690; 83735; 84484; 84703; 85025; 87086; 87186; 88304-TC; 93005; 93010; 94760; 99285-25; G0378

== ENCOUNTER 2023-08-13 19:08 | Emergency (ER) | payer OTHER ==
[2023-08-13 20:10] VITALS: BMI 21.8
[2023-08-13] MEDS ORDERED: LIDOCAINE 4% PATCH TP ONE ×2 (20:12→21:59)
[2023-08-13] MEDS ORDERED: ACETAMINOPHEN 500 MG TABLET (FP) PO ONE (20:22)
[2023-08-13] MEDS ORDERED: SODIUM CHLORIDE 1,000 ML IV SCH (20:30)
[2023-08-13] MEDS ORDERED: ACETAMINOPHEN 325 MG TABLET (FP) ONE (21:59)
[2023-08-13 22:21] LABS: INR 1.04 (0.83-1.09); PROTHROMBIN TIME (PATIENT) 12.1 SEC (9.7-13.0)
[2023-08-13 22:24] LABS: ACTIVATED PTT 22.4 SECONDS (25.2-36.5)
[2023-08-13 22:31] LABS: BASO % 0.4 % (0-2.0); EOS % 0.2 % (0-4.5); HEMATOCRIT 45.8 % (32.4-45.2); HEMOGLOBIN 15.5 GM/dL (10.7-15.3); LYMPH % 15.7 % (8-40); MCHC 33.8 g/dl (32.0-36.0); MEAN CELL VOLUME 88.9 fl (80-96); MEAN PLT VOLUME 10.5 fl (7.5-11.1); MONO % 5.5 % (3.8-10.2); NEUT % 78.2 % (42.8-82.8); PLATELET COUNT 225 10^3/uL (134-434); RBC 5.15 M/mm3 (3.60-5.2); RDW 13.2 % (11.6-15.6); WHITE BLOOD COUNT 15.6 K/mm3 (4.0-10.0)
[2023-08-13 22:33] LABS: MAGNESIUM 1.9 mg/dL (1.8-2.4)
[2023-08-13 22:34] LABS: CALCIUM 9.7 mg/dL (8.5-10.1)
[2023-08-13 22:35] LABS: ALBUMIN 3.9 g/dl (3.4-5.0); BLOOD UREA NITROGEN 16.2 mg/dL (7-18)
[2023-08-13 22:37] LABS: CREATININE 0.9 mg/dL (0.55-1.3)
[2023-08-13 22:40] LABS: BILIRUBIN,TOTAL 0.8 mg/dL (0.2-1)
[2023-08-13 22:42] VITALS: BP 107/79; PULSE 90; RESP 20; TEMP 97.8
[2023-08-14] MEDS ORDERED: LIDOCAINE PATCH REMOVAL MC SCH (09:00)
== END 2023-08-14 00:41 | disposition left against medical advice (07) ==
LOC: JER 19:08
DX: R20.2 Paresthesia of skin (principal); M54.9 Dorsalgia, unspecified; F41.9 Anxiety disorder, unspecified
CPT/HCPCS: 36415; 70450-TC; 71045-TC-FY; 72125-TC; 80053; 80061; 82550; 82962; 83036; 83735; 84484; 84703; 85025; 85610; 85730; 86850; 86900; 86901; 93005; 93010; 99285-25

== ENCOUNTER 2023-09-30 11:35 | Emergency (ER) | payer OTHER ==
[2023-09-30 11:49] VITALS: BP 122/74; PULSE 82; RESP 18; TEMP 98.4; BMI 21.8
[2023-09-30] MEDS ORDERED: IBUPROFEN 600 MG TABLET (FP) PO ONE ×2 (12:41→12:51)
[2023-09-30 14:24] LABS: EPI CELLS 29 /uL (0-25.1); HYALINE CASTS 2 /uL (0-3.1); PH,URINE 6.5 (5.0-8.0); URINE APPEARANCE CLOUDY; URINE BACTERIA >9,000 /uL (0-1359); URINE BILIRUBIN NEGATIVE (NEGATIVE); URINE COLOR YELLOW; URINE GLUCOSE (UA) NEGATIVE (NEGATIVE); URINE KETONE 1+ (NEGATIVE); URINE LEUK ESTERASE 1+ (NEGATIVE); URINE NITRITE POSITIVE (NEGATIVE); URINE PROTEIN NEGATIVE (NEGATIVE); URINE RBC 52 /uL (0-23.9); URINE WBC 234 /uL (0-25.8)
== END 2023-09-30 15:25 | disposition home or self-care (01) ==
LOC: JER 11:35
DX: R07.9 Chest pain, unspecified (principal); R10.9 Unspecified abdominal pain; N39.0 Urinary tract infection, site not specified; U07.1 COVID-19
CPT/HCPCS: 0241U-QW; 71045-TC-FY; 81003; 87086; 93005; 93010; 99284-25

== ENCOUNTER 2023-10-11 22:57 | Observation (INO) | payer OTHER ==
[2023-10-11] MEDS ORDERED: FAMOTIDINE 20 MG/50 ML IVPB 20 MG/50 ML MG IVPB ONE ×2 (23:33→23:39)
[2023-10-11] MEDS ORDERED: ACETAMINOPHEN 1000 MG/100 ML BAG IVPB ONE (23:33)
[2023-10-11] MEDS ORDERED: SODIUM CHLORIDE 0.9% 500 ML INFUS.BAG IV ONE (23:33)
[2023-10-11] MEDS ORDERED: ONDANSETRON 4 MG/2 ML VIAL IVPUSH ONE (23:33)
[2023-10-11] MEDS ORDERED: ACETAMINOPHEN INJECTION 100 ML IVPB ONE (23:39)
[2023-10-11] MEDS ORDERED: ONDANSETRON 4 MG/2 ML VIAL ONE (23:39)
[2023-10-11] MEDS ORDERED: MAG HYDROX/AL HYDROX/SIMETH 30 ML UNIT-DOSE CUP PO ONE (23:48)
[2023-10-12 00:05] LABS: BASO % 0.2 % (0-2.0); EOS % 0.3 % (0-4.5); HEMOGLOBIN 13.9 GM/dL (10.7-15.3); LYMPH % 6.2 % (8-40); MCH 29.9 pg (25.7-33.7); MCHC 33.1 g/dl (32.0-36.0); MEAN CELL VOLUME 90.4 fl (80-96); MONO % 3.9 % (3.8-10.2); NEUT % 89.4 % (42.8-82.8); PLATELET COUNT 310 10^3/uL (134-434); RBC 4.65 M/mm3 (3.60-5.2); RDW 13.8 % (11.6-15.6); WHITE BLOOD COUNT 19.9 K/mm3 (4.0-10.0)
[2023-10-12 00:24] LABS: CHLORIDE 106 mmol/L (98-107); POTASSIUM 4.5 mmol/L (3.5-5.1); SODIUM 136 mmol/L (136-145)
[2023-10-12 00:26] LABS: CALCIUM 9.1 mg/dL (8.5-10.1)
[2023-10-12 00:27] LABS: ALBUMIN 3.9 g/dl (3.4-5.0); ANION GAP 8 mmol/L (4-13); BLOOD UREA NITROGEN 15.4 mg/dL (7-18); CO2 23 mmol/L (21-32); GLUCOSE,RANDOM 108 mg/dL (74-106); LIPASE 75 U/L (73-393)
[2023-10-12 00:29] LABS: SGPT/ALT 15 U/L (13-61)
[2023-10-12 00:30] LABS: CREATININE 0.8 mg/dL (0.55-1.3); SGOT/AST 28 U/L (15-37)
[2023-10-12 00:31] LABS: BILIRUBIN,TOTAL 0.4 mg/dL (0.2-1); TOT PROT 7.8 g/dl (6.4-8.2)
[2023-10-12 00:32] LABS: ALK PHOS 110 U/L (45-117)
[2023-10-12] MEDS ORDERED: morphine CARPU-JECT 2 MG/1 ML DISP.SYRIN IVPUSH ONE (02:12)
[2023-10-12 02:27] LABS: EPI CELLS 27 /uL (0-25.1); HYALINE CASTS 1 /uL (0-3.1); URINE APPEARANCE CLOUDY; URINE BACTERIA >9,000 /uL (0-1359); URINE BILIRUBIN NEGATIVE (NEGATIVE); URINE COLOR YELLOW; URINE GLUCOSE (UA) NEGATIVE (NEGATIVE); URINE KETONE 1+ (NEGATIVE); URINE LEUK ESTERASE TRACE (NEGATIVE); URINE NITRITE NEGATIVE (NEGATIVE); URINE PROTEIN NEGATIVE (NEGATIVE); URINE RBC 8 /uL (0-23.9); URINE WBC 118 /uL (0-25.8)
[2023-10-12] MEDS ORDERED: CEFTRIAXONE 1 GM/50 ML BAG ONE ×2 (02:51→09:16)
[2023-10-12 05:55] LABS: BASO % 0.5 % (0-2.0); EOS % 0.2 % (0-4.5); LYMPH % 9.5 % (8-40); MCHC 32.6 g/dl (32.0-36.0); MEAN CELL VOLUME 91.9 fl (80-96); NEUT % 84.8 % (42.8-82.8); PLATELET COUNT 294 10^3/uL (134-434); RBC 4.35 M/mm3 (3.60-5.2); RDW 13.5 % (11.6-15.6); WHITE BLOOD COUNT 15.1 K/mm3 (4.0-10.0)
[2023-10-12 06:12] LABS: CHLORIDE 106 mmol/L (98-107); POTASSIUM 3.9 mmol/L (3.5-5.1); SODIUM 135 mmol/L (136-145)
[2023-10-12 06:14] LABS: ALBUMIN 3.7 g/dl (3.4-5.0); ANION GAP 7 mmol/L (4-13); BLOOD UREA NITROGEN 10.5 mg/dL (7-18); CO2 22 mmol/L (21-32); GLUCOSE,RANDOM 109 mg/dL (74-106)
[2023-10-12] MEDS: SODIUM CHLORIDE 1,000 ML IV SCH (06:16)
[2023-10-12 06:17] LABS: CREATININE 0.7 mg/dL (0.55-1.3); SGPT/ALT 14 U/L (13-61)
[2023-10-12] MEDS: ACETAMINOPHEN 1000 MG/100 ML BAG IVPB PRN ×4 (06:17→17:47)
[2023-10-12 06:18] LABS: PHENCYCLIDINE,URINE NEGATIVE (NEGATIVE); SGOT/AST 13 U/L (15-37); URINE BARBITURATES NEGATIVE (NEGATIVE); URINE BENZODIAZEPINES NEGATIVE (NEGATIVE)
[2023-10-12 06:19] LABS: TOT PROT 7.2 g/dl (6.4-8.2)
[2023-10-12 06:20] LABS: ALK PHOS 104 U/L (45-117)
[2023-10-12 06:21] LABS: BILIRUBIN,TOTAL 0.3 mg/dL (0.2-1); COCAINE, UR NEGATIVE (NEGATIVE); METHADONE, UR NEGATIVE (NEGATIVE); OPIATES, URI NEGATIVE (NEGATIVE); URINE AMPHETAMINES NEGATIVE (NEGATIVE)
[2023-10-12] MEDS: CEFTRIAXONE 1 GM in DEXTROSE 5%-WATER - 50 ML IVPB SCH (06:28)
[2023-10-12] MEDS: ONDANSETRON 4 MG/2 ML VIAL IVPUSH PRN ×4 (06:44→17:47)
[2023-10-12] MEDS ORDERED: ONDANSETRON 4 MG/2 ML VIAL ONE ×4 (06:45→17:34)
[2023-10-12] MEDS ORDERED: ALBUTEROL SO4 2.5/IPRATROPIUM 0.5 INH SOL 3 ML VIAL.NEB. NEB PRN (08:28)
[2023-10-12] MEDS ORDERED: PATIENT'S OWN MEDICATION (NON-FORMULARY) (Albuterol Sulfate [Proair Respiclick] 90 MCG Aer IH PRN ×2 (08:28→10:34)
[2023-10-12] MEDS ORDERED: ACETAMINOPHEN INJECTION 100 ML IVPB ONE ×3 (08:35→17:34)
[2023-10-12] MEDS ORDERED: ENOXAPARIN NA (PORCINE) 40 MG/0.4 ML DISP.SYRIN SQ ONE (09:16)
[2023-10-12] MEDS: ENOXAPARIN NA (PORCINE) 40 MG/0.4 ML DISP.SYRIN SQ SCH (09:18)
[2023-10-12] MEDS ORDERED: ALBUTEROL SO4 HFA INHALER IH PRN (16:29)
[2023-10-12] MEDS ORDERED: ALBUTEROL SO4 2.5/IPRATROPIUM 0.5 INH SOL 3 ML VIAL.NEB. NEB ONE (19:25)
[2023-10-12] MEDS ORDERED: LIDOCAINE 5% TOPICAL PATCH TP SCH (19:45)
[2023-10-12] MEDS ORDERED: LIDOCAINE 4% PATCH TP ONE (20:00)
[2023-10-12] MEDS ORDERED: LIDOCAINE 4% PATCH TP SCH (20:09)
[2023-10-12] MEDS ORDERED: MELATONIN 5 MG TABLETS PO ONE (21:52)
[2023-10-12] MEDS ORDERED: LIDOCAINE PATCH REMOVAL MC SCH (22:00)
[2023-10-12] MEDS ORDERED: MELATONIN 5 MG TABLETS ONE (22:18)
[2023-10-13] MEDS: ACETAMINOPHEN 1000 MG/100 ML BAG IVPB PRN (00:28)
[2023-10-13 01:40] VITALS: RESP 20; BMI 20.9
[2023-10-13] MEDS: ACETAMINOPHEN 325 MG TABLET (FP) PO PRN ×2 (06:48→14:07)
[2023-10-13 07:50] VITALS: BP 134/95; PULSE 70; TEMP 98.7
[2023-10-13] MEDS: SODIUM CHLORIDE 1,000 ML IV SCH (08:36)
[2023-10-13] MEDS ORDERED: CEFTRIAXONE 1 GM in DEXTROSE 5%-WATER - 50 ML IVPB SCH (10:00)
[2023-10-13] MEDS: CEFTRIAXONE 1 GM in DEXTROSE 5%-WATER - 50 ML IVPB SCH (10:02)
[2023-10-13] MEDS: ENOXAPARIN NA (PORCINE) 40 MG/0.4 ML DISP.SYRIN SQ SCH (10:02)
== END 2023-10-13 16:22 | disposition left against medical advice (07) ==
LOC: JER 22:57 → JERBED 10-12 02:11 → UNDODISOB 10-12 10:11 → J5S 10-12 23:32
PROVIDERS: ADMIT Internal Medicine; ATTEND Internal Medicine
PROC: 3E033NZ Introduction of Analgesics, Hypnotics, Sedatives into Peripheral Vein, Percutaneous Approach (ICD-10-PCS; principal; 2023-10-12)
PROC: 3E0F7GC Introduction of Other Therapeutic Substance into Respiratory Tract, Via Natural or Artificial Opening (ICD-10-PCS; 2023-10-12)
PROC: 3E03329 Introduction of Other Anti-infective into Peripheral Vein, Percutaneous Approach (ICD-10-PCS; 2023-10-12)
PROC: 3E023GC Introduction of Other Therapeutic Substance into Muscle, Percutaneous Approach (ICD-10-PCS; 2023-10-12)
PROC: 3E023NZ Introduction of Analgesics, Hypnotics, Sedatives into Muscle, Percutaneous Approach (ICD-10-PCS; 2023-10-12)
PROC: 3E0337Z Introduction of Electrolytic and Water Balance Substance into Peripheral Vein, Percutaneous Approach (ICD-10-PCS; 2023-10-12)
DX: N39.0 Urinary tract infection, site not specified (principal); S24.102S Unspecified injury at T2-T6 level of thoracic spinal cord, sequela; M54.9 Dorsalgia, unspecified; R10.32 Left lower quadrant pain; F41.9 Anxiety disorder, unspecified; Z72.0 Tobacco use; Z87.440 Personal history of urinary (tract) infections; Z88.0 Allergy status to penicillin; Z88.8 Allergy status to other drugs, medicaments and biological substances; X58.XXXA Exposure to other specified factors, initial encounter; Y93.89 Activity, other specified; Y92.89 Other specified places as the place of occurrence of the external cause
CPT/HCPCS: 0241U-QW; 36415; 71045-TC-FY; 71250-TC; 74176-TC; 76705-TC; 80053; 80307; 81003; 82962; 83690; 83735; 84702; 85025; 87040; 87086; 87186; 93005; 93010; 94640; 96361; 96365; 96367; 96372; 96375; 96376; 97161-GP; 99285-25; G0378

== ENCOUNTER 2023-10-16 21:03 | Emergency (ER) | payer OTHER ==
[2023-10-16 21:24] VITALS: BP 150/63; PULSE 62; RESP 18; TEMP 98.3; BMI 21.8
[2023-10-16] MEDS ORDERED: SODIUM CHLORIDE 0.9% 500 ML INFUS.BAG IV ONE ×2 (22:29→22:45)
[2023-10-16] MEDS ORDERED: FAMOTIDINE 20 MG/50 ML IVPB 20 MG/50 ML MG IVPB ONE (22:45)
[2023-10-16] MEDS ORDERED: HYDROmorphone HCl 2 MG/ML VIAL IVPUSH ONE (22:45)
[2023-10-16] MEDS ORDERED: ONDANSETRON 4 MG/2 ML VIAL IVPUSH ONE (22:45)
[2023-10-17] MEDS ORDERED: FAMOTIDINE 20 MG/50 ML IVPB 20 MG/50 ML MG IVPB ONE (01:33)
[2023-10-17] MEDS ORDERED: ONDANSETRON 4 MG/2 ML VIAL ONE (01:33)
[2023-10-17] MEDS ORDERED: HYDROmorphone HCl 2 MG/ML VIAL ONE (01:33)
[2023-10-17 02:26] LABS: BASO % 0.8 % (0-2.0); EOS % 0.2 % (0-4.5); HEMATOCRIT 41.8 % (32.4-45.2); HEMOGLOBIN 14.3 GM/dL (10.7-15.3); LYMPH % 29.1 % (8-40); MCH 31.2 pg (25.7-33.7); MCHC 34.2 g/dl (32.0-36.0); MEAN CELL VOLUME 91.3 fl (80-96); MEAN PLT VOLUME 8.8 fl (7.5-11.1); MONO % 12.7 % (3.8-10.2); NEUT % 57.2 % (42.8-82.8); PLATELET COUNT 362 10^3/uL (134-434); RBC 4.58 M/mm3 (3.60-5.2); RDW 13.6 % (11.6-15.6); WHITE BLOOD COUNT 6.9 K/mm3 (4.0-10.0)
[2023-10-17 02:30] LABS: PH,URINE 7.5 (5.0-8.0); URINE APPEARANCE CLEAR; URINE BILIRUBIN NEGATIVE (NEGATIVE); URINE COLOR YELLOW; URINE GLUCOSE (UA) NEGATIVE (NEGATIVE); URINE KETONE 1+ (NEGATIVE); URINE LEUK ESTERASE NEGATIVE (NEGATIVE); URINE NITRITE NEGATIVE (NEGATIVE); URINE PROTEIN NEGATIVE (NEGATIVE); URINE UROBILINOGEN 0.2 mg/dL (0.2-1.0)
[2023-10-17] MEDS ORDERED: HYDROmorphone HCl 2 MG/ML VIAL IVPUSH ONE (02:30)
[2023-10-17] MEDS ORDERED: ONDANSETRON 4 MG/2 ML VIAL IVPB ONE (02:31)
[2023-10-17 02:41] LABS: POTASSIUM 4.2 mmol/L (3.5-5.1)
[2023-10-17 02:44] LABS: ALBUMIN 4.1 g/dl (3.4-5.0); BLOOD UREA NITROGEN 7.7 mg/dL (7-18)
[2023-10-17 02:47] LABS: CREATININE 0.8 mg/dL (0.55-1.3)
[2023-10-17 02:48] LABS: BILIRUBIN,TOTAL 0.4 mg/dL (0.2-1)
[2023-10-17 02:49] LABS: TOT PROT 8.2 g/dl (6.4-8.2)
[2023-10-17 03:04] LABS: CALCIUM 9.5 mg/dL (8.5-10.1)
[2023-10-17] MEDS ORDERED: DOXYCYCLINE HYCLATE 100 MG CAPSULE PO ONE ×2 (05:37→05:40)
[2023-10-17] MEDS ORDERED: cefTRIAXone SODIUM 1 GM VIAL ONE (05:41)
== END 2023-10-17 06:11 | disposition home or self-care (01) ==
LOC: JER 21:03
PROC: 3E033GC Introduction of Other Therapeutic Substance into Peripheral Vein, Percutaneous Approach (ICD-10-PCS; principal; 2023-10-17)
PROC: 3E033GC Introduction of Other Therapeutic Substance into Peripheral Vein, Percutaneous Approach (ICD-10-PCS; 2023-10-17)
PROC: 3E033GC Introduction of Other Therapeutic Substance into Peripheral Vein, Percutaneous Approach (ICD-10-PCS; 2023-10-17)
PROC: 3E023GC Introduction of Other Therapeutic Substance into Muscle, Percutaneous Approach (ICD-10-PCS; 2023-10-17)
DX: R10.9 Unspecified abdominal pain (principal); L50.9 Urticaria, unspecified; R42 Dizziness and giddiness; K51.20 Ulcerative (chronic) proctitis without complications; Z20.822 Contact with and (suspected) exposure to COVID-19
CPT/HCPCS: 0241U-QW; 36415; 74177-TC; 80053; 81003; 82550; 83605; 84443; 84484; 84703; 85025; 87086; 87186; 93005; 93010; 96365; 96372; 96375; 99285-25; Q9967

== ENCOUNTER 2024-02-02 13:49 | Emergency (ER) | payer OTHER ==
[2024-02-02 14:09] VITALS: RESP 18; BMI 21.8
[2024-02-02] MEDS ORDERED: ONDANSETRON 4 MG/2 ML VIAL ONE (15:13)
[2024-02-02] MEDS ORDERED: FAMOTIDINE 20 MG/50 ML IVPB 20 MG/50 ML MG IVPB ONE (15:13)
[2024-02-02] MEDS ORDERED: ACETAMINOPHEN INJECTION 100 ML IVPB ONE ×2 (15:13→20:46)
[2024-02-02] MEDS: SODIUM CHLORIDE 0.9% 500 ML INFUS.BAG IV ONE ×2 (15:21→21:12)
[2024-02-02] MEDS: ACETAMINOPHEN 1000 MG/100 ML BAG IVPB ONE ×2 (15:21→21:12)
[2024-02-02] MEDS: ONDANSETRON 4 MG/2 ML VIAL IVPUSH ONE (15:22)
[2024-02-02] MEDS: FAMOTIDINE 20 MG/50 ML IVPB 20 MG/50 ML MG IVPB ONE (15:22)
[2024-02-02 16:08] LABS: BASO % 0.5 % (0-2.0); EOS % 0.1 % (0-4.5); HEMATOCRIT 37.1 % (32.4-45.2); HEMOGLOBIN 12.5 GM/dL (10.7-15.3); MCH 30.9 pg (25.7-33.7); MCHC 33.7 g/dl (32.0-36.0); MEAN CELL VOLUME 91.6 fl (80-96); MEAN PLT VOLUME 8.9 fl (7.5-11.1); MONO % 4.8 % (3.8-10.2); NEUT % 84.6 % (42.8-82.8); PLATELET COUNT 276 10^3/uL (134-434); RBC 4.05 M/mm3 (3.60-5.2); RDW 13.9 % (11.6-15.6); WHITE BLOOD COUNT 11.8 K/mm3 (4.0-10.0)
[2024-02-02 16:59] LABS: POTASSIUM 3.7 mmol/L (3.5-5.1)
[2024-02-02 17:01] LABS: CALCIUM 8.1 mg/dL (8.5-10.1)
[2024-02-02 17:02] LABS: ALBUMIN 3.3 g/dl (3.4-5.0); BLOOD UREA NITROGEN 13.4 mg/dL (7-18)
[2024-02-02 17:05] LABS: CREATININE 0.7 mg/dL (0.55-1.3)
[2024-02-02 17:06] LABS: BILIRUBIN,TOTAL 0.5 mg/dL (0.2-1); TOT PROT 6.4 g/dl (6.4-8.2)
[2024-02-02 17:51] LABS: EPI CELLS >36 /uL (0-25.1); HYALINE CASTS 2 /uL (0-3.1); PH,URINE 6.5 (5.0-8.0); URINE APPEARANCE TURBID; URINE BACTERIA >9,000 /uL (0-1359); URINE BILIRUBIN NEGATIVE (NEGATIVE); URINE COLOR YELLOW; URINE GLUCOSE (UA) NEGATIVE (NEGATIVE); URINE KETONE 2+ (NEGATIVE); URINE LEUK ESTERASE 2+ (NEGATIVE); URINE NITRITE POSITIVE (NEGATIVE); URINE PROTEIN TRACE (NEGATIVE); URINE RBC 39 /uL (0-23.9); URINE WBC 736 /uL (0-25.8)
[2024-02-02 18:07] VITALS: BP 120/69; PULSE 61; TEMP 97.7
[2024-02-02] MEDS ORDERED: VANCOMYCIN 1 GRAM (PRE-DOCKED) 1,000 MG/250 ML BAG IVPB ONE (19:54)
[2024-02-02] MEDS ORDERED: CEFTRIAXONE 1 GM/50 ML BAG ONE (19:54)
[2024-02-02] MEDS: CEFTRIAXONE 1,000 MG in DEXTROSE 5%-WATER - 50 ML IVPB ONE (20:24)
[2024-02-02] MEDS ORDERED: METOCLOPRAMIDE HCL INJECTION 10 MG/2 ML VIAL ONE (20:45)
[2024-02-02] MEDS: VANCOMYCIN 1,000 MG in DEXTROSE 5%-WATER - 250 ML IVPB ONE (20:57)
[2024-02-02] MEDS: METOCLOPRAMIDE HCL INJECTION 10 MG/2 ML VIAL IVPB ONE (20:57)
== END 2024-02-02 22:49 | disposition admitted as inpatient to this hospital (09) ==
LOC: JER 13:49
PROC: 3E03329 Introduction of Other Anti-infective into Peripheral Vein, Percutaneous Approach (ICD-10-PCS; principal; 2024-02-02)
PROC: 3E03329 Introduction of Other Anti-infective into Peripheral Vein, Percutaneous Approach (ICD-10-PCS; 2024-02-02)
PROC: 3E03329 Introduction of Other Anti-infective into Peripheral Vein, Percutaneous Approach (ICD-10-PCS; 2024-02-02)
PROC: 3E033GC Introduction of Other Therapeutic Substance into Peripheral Vein, Percutaneous Approach (ICD-10-PCS; 2024-02-02)
PROC: 3E033GC Introduction of Other Therapeutic Substance into Peripheral Vein, Percutaneous Approach (ICD-10-PCS; 2024-02-02)
PROC: 3E033GC Introduction of Other Therapeutic Substance into Peripheral Vein, Percutaneous Approach (ICD-10-PCS; 2024-02-02)
PROC: 3E033NZ Introduction of Analgesics, Hypnotics, Sedatives into Peripheral Vein, Percutaneous Approach (ICD-10-PCS; 2024-02-02)
PROC: 3E033NZ Introduction of Analgesics, Hypnotics, Sedatives into Peripheral Vein, Percutaneous Approach (ICD-10-PCS; 2024-02-02)
DX: R11.2 Nausea with vomiting, unspecified (principal); R10.13 Epigastric pain; R30.0 Dysuria; R32 Unspecified urinary incontinence; N39.0 Urinary tract infection, site not specified; Z20.822 Contact with and (suspected) exposure to COVID-19
CPT/HCPCS: 0241U-QW; 36415; 71045-TC-FY; 74177-TC; 80053; 81003; 82962; 83690; 84703; 85025; 87086; 87186; 93005; 93010; 99285-25; J0131; Q9967

== ENCOUNTER 2024-02-04 14:29 | Emergency (ER) | payer OTHER ==
[2024-02-04 15:11] VITALS: BP 143/76; PULSE 73; RESP 20; TEMP 97.5; BMI 21.6
[2024-02-04] MEDS ORDERED: ACETAMINOPHEN 325 MG TABLET (FP) ONE (18:16)
[2024-02-04] MEDS: ACETAMINOPHEN 325 MG TABLET (FP) PO ONE (18:19)
[2024-02-04 18:44] LABS: EPI CELLS >36 /uL (0-25.1); HYALINE CASTS 4 /uL (0-3.1); PH,URINE 5.5 (5.0-8.0); URINE APPEARANCE CLEAR; URINE BACTERIA 21 /uL (0-1359); URINE BILIRUBIN NEGATIVE (NEGATIVE); URINE COLOR YELLOW; URINE GLUCOSE (UA) NEGATIVE (NEGATIVE); URINE KETONE 2+ (NEGATIVE); URINE LEUK ESTERASE 1+ (NEGATIVE); URINE NITRITE NEGATIVE (NEGATIVE); URINE PROTEIN NEGATIVE (NEGATIVE); URINE RBC 14 /uL (0-23.9); URINE UROBILINOGEN 0.2 mg/dL (0.2-1.0); URINE WBC 73 /uL (0-25.8)
[2024-02-04] MEDS ORDERED: METHOCARBAMOL 500 MG TABLET ONE (20:01)
[2024-02-04] MEDS: METHOCARBAMOL 500 MG TABLET PO ONE (20:06)
== END 2024-02-04 21:24 | disposition home or self-care (01) ==
LOC: JER 14:29
DX: N39.0 Urinary tract infection, site not specified (principal); R10.9 Unspecified abdominal pain; R50.9 Fever, unspecified; M54.9 Dorsalgia, unspecified; F41.9 Anxiety disorder, unspecified
CPT/HCPCS: 81003; 87086; 93005; 93010; 99284-25

== ENCOUNTER 2024-02-09 21:57 | Emergency (ER) | payer OTHER ==
[2024-02-09 22:03] VITALS: BMI 21.8
[2024-02-10] LABS: EPI CELLS >36 /uL (0-25.1); HYALINE CASTS 0 /uL (0-3.1); URINE APPEARANCE CLEAR; URINE BACTERIA 2195 /uL (0-1359); URINE BILIRUBIN NEGATIVE (NEGATIVE); URINE COLOR YELLOW; URINE GLUCOSE (UA) NEGATIVE (NEGATIVE); URINE KETONE NEGATIVE (NEGATIVE); URINE LEUK ESTERASE NEGATIVE (NEGATIVE); URINE NITRITE POSITIVE (NEGATIVE); URINE PROTEIN NEGATIVE (NEGATIVE); URINE RBC 5 /uL (0-23.9); URINE UROBILINOGEN 0.2 mg/dL (0.2-1.0); URINE WBC 17 /uL (0-25.8)
[2024-02-10 00:01] LABS: HCG,QUALITATIVE URINE Negative
[2024-02-10] MEDS ORDERED: METHOCARBAMOL 500 MG TABLET ONE (00:06)
[2024-02-10] MEDS: METHOCARBAMOL 500 MG TABLET PO ONE (00:10)
[2024-02-10] MEDS ORDERED: LORazepam 0.5 MG TABLET ONE (01:19)
[2024-02-10] MEDS: LORazepam 2 MG TABLET PO ONE (01:24)
[2024-02-10] MEDS ORDERED: ONDANSETRON 4 MG/2 ML VIAL ONE (01:52)
[2024-02-10] MEDS: ONDANSETRON 4 MG/2 ML VIAL IVPUSH ONE (02:14)
[2024-02-10 03:40] VITALS: BP 129/90; PULSE 105; RESP 16; TEMP 98.4
== END 2024-02-10 03:42 | disposition home or self-care (01) ==
LOC: JER 21:57
PROC: 3E030GC Introduction of Other Therapeutic Substance into Peripheral Vein, Open Approach (ICD-10-PCS; principal; 2024-02-10)
DX: N30.00 Acute cystitis without hematuria (principal); M54.50 Low back pain, unspecified; R10.30 Lower abdominal pain, unspecified
CPT/HCPCS: 81003; 84703; 87086; 87186; 99284-25

== ENCOUNTER 2024-02-11 20:29 | Emergency (ER) | payer OTHER ==
[2024-02-11 20:35] VITALS: BP 126/81; PULSE 88; RESP 20; TEMP 98.7; BMI 21.6
[2024-02-11] MEDS ORDERED: ACETAMINOPHEN 325 MG TABLET (FP) ONE (21:00)
[2024-02-11] MEDS ORDERED: LIDOCAINE 4% PATCH TP ONE (21:00)
[2024-02-11] MEDS ORDERED: METHOCARBAMOL 500 MG TABLET ONE (21:00)
[2024-02-11] MEDS ORDERED: ALPRAZolam 0.25 MG TABLET ONE (21:07)
[2024-02-11] MEDS: LIDOCAINE 4% PATCH TP ONE (21:12)
[2024-02-11] MEDS: ACETAMINOPHEN 325 MG TABLET (FP) PO ONE (21:12)
[2024-02-11] MEDS: METHOCARBAMOL 750 MG TAB PO ONE (21:12)
[2024-02-11] MEDS: ALPRAZolam 0.25 MG TABLET PO ONE (21:12)
[2024-02-12] MEDS ORDERED: LIDOCAINE PATCH REMOVAL MC SCH (09:00)
== END 2024-02-11 23:23 | disposition home or self-care (01) ==
LOC: JER 20:29 → JERFT 20:29
DX: M54.6 Pain in thoracic spine (principal); V00.811A Fall from moving wheelchair (powered), initial encounter
CPT/HCPCS: 72070-TC-FY; 99283-25

== ENCOUNTER 2024-07-15 12:34 | Emergency (ER) | payer OTHER ==
[2024-07-15 13:24] VITALS: BP 130/77; PULSE 63; RESP 18; TEMP 98.5; BMI 19.1
[2024-07-15] MEDS ORDERED: ACETAMINOPHEN 325 MG TABLET (FP) ONE (13:55)
[2024-07-15] MEDS: ACETAMINOPHEN 500 MG TABLET (FP) PO ONE (14:01)
== END 2024-07-15 15:02 | disposition home or self-care (01) ==
LOC: JER 12:34
DX: R10.13 Epigastric pain (principal); R11.0 Nausea
CPT/HCPCS: 36415; 84703; 99283-25

== ENCOUNTER 2024-07-15 17:27 | Emergency (ER) | payer OTHER ==
[2024-07-15 18:03] VITALS: BP 143/86; PULSE 83; RESP 18; TEMP 98.7; BMI 21.8
[2024-07-15] MEDS ORDERED: MAG HYDROX/AL HYDROX/SIMETH 30 ML UNIT-DOSE CUP ONE (18:32)
[2024-07-15] MEDS ORDERED: ACETAMINOPHEN INJECTION 100 ML ONE (18:32)
[2024-07-15] MEDS ORDERED: SUCRALFATE 1 GM TABLET (FP) ONE (18:32)
[2024-07-15] MEDS ORDERED: ONDANSETRON 4 MG/2 ML VIAL ONE (18:33)
[2024-07-15] MEDS ORDERED: FAMOTIDINE 20 MG/50 ML IVPB 20 MG/50 ML MG IVPB ONE (18:33)
[2024-07-15] MEDS: ONDANSETRON 4 MG/2 ML VIAL IVPUSH ONE (18:56)
[2024-07-15] MEDS: FAMOTIDINE 20 MG/50 ML IVPB 20 MG/50 ML MG IVPB ONE (18:56)
[2024-07-15] MEDS: LACTATED RINGERS SOLUTION 1000 ML INFUS.BAG IV ONE (18:56)
[2024-07-15 18:57] LABS: BASO % 0.4 % (0-2.0); EOS % 0.3 % (0-4.5); HEMATOCRIT 40.6 % (32.4-45.2); HEMOGLOBIN 13.9 GM/dL (10.7-15.3); LYMPH % 14.5 % (8-40); MCH 30.8 pg (25.7-33.7); MCHC 34.3 g/dl (32.0-36.0); MEAN CELL VOLUME 89.7 fl (80-96); MEAN PLT VOLUME 9.3 fl (7.5-11.1); MONO % 7.5 % (3.8-10.2); NEUT % 77.3 % (42.8-82.8); PLATELET COUNT 387 10^3/uL (134-434); RBC 4.52 M/mm3 (3.60-5.2); RDW 13.3 % (11.6-15.6); WHITE BLOOD COUNT 12.1 K/mm3 (4.0-10.0)
[2024-07-15] MEDS: ACETAMINOPHEN 1000 MG/100 ML BAG IVPB ONE (18:57)
[2024-07-15] MEDS: SUCRALFATE 1 GM TABLET (FP) PO ONE (18:57)
[2024-07-15] MEDS: MAG HYDROX/AL HYDROX/SIMETH 30 ML UNIT-DOSE CUP PO ONE (18:57)
[2024-07-15 19:23] LABS: POTASSIUM 4.1 mmol/L (3.5-5.1)
[2024-07-15 19:25] LABS: CALCIUM 9.3 mg/dL (8.5-10.1)
[2024-07-15 19:26] LABS: BLOOD UREA NITROGEN 10.5 mg/dL (7-18)
[2024-07-15 19:29] LABS: CREATININE 0.8 mg/dL (0.55-1.3)
[2024-07-15 19:30] LABS: BILIRUBIN,TOTAL 0.9 mg/dL (0.2-1)
[2024-07-15 19:57] LABS: PH,URINE 6.5 (5.0-8.0); URINE APPEARANCE CLEAR; URINE BILIRUBIN NEGATIVE (NEGATIVE); URINE COLOR YELLOW; URINE GLUCOSE (UA) NEGATIVE (NEGATIVE); URINE KETONE 2+ (NEGATIVE); URINE LEUK ESTERASE NEGATIVE (NEGATIVE); URINE NITRITE NEGATIVE (NEGATIVE); URINE PROTEIN NEGATIVE (NEGATIVE); URINE UROBILINOGEN 0.2 mg/dL (0.2-1.0)
[2024-07-15] MEDS ORDERED: morphine SULFATE 4 MG/ML VIAL ONE (20:55)
[2024-07-15] MEDS: morphine CARPU-JECT 4 MG/1 ML DISP.SYRIN IVPUSH ONE (21:04)
[2024-07-15] MEDS ORDERED: ALPRAZolam 0.25 MG TABLET ONE (23:28)
[2024-07-15] MEDS: ALPRAZolam 1 MG TABLET PO ONE (23:32)
== END 2024-07-15 23:52 | disposition home or self-care (01) ==
LOC: JER 17:27
PROC: 3E033GC Introduction of Other Therapeutic Substance into Peripheral Vein, Percutaneous Approach (ICD-10-PCS; principal; 2024-07-15)
PROC: 3E033GC Introduction of Other Therapeutic Substance into Peripheral Vein, Percutaneous Approach (ICD-10-PCS; 2024-07-15)
PROC: 3E033NZ Introduction of Analgesics, Hypnotics, Sedatives into Peripheral Vein, Percutaneous Approach (ICD-10-PCS; 2024-07-15)
PROC: 3E033NZ Introduction of Analgesics, Hypnotics, Sedatives into Peripheral Vein, Percutaneous Approach (ICD-10-PCS; 2024-07-15)
DX: R10.84 Generalized abdominal pain (principal); R11.2 Nausea with vomiting, unspecified
CPT/HCPCS: 36415; 71045-TC-FY; 74177-TC; 80053; 81003; 83690; 84484; 85025; 87086; 93005; 93010; 96365; 96375; 99285-25; J0131; Q9967

== ENCOUNTER 2024-12-14 17:46 | Emergency (ER) | payer OTHER ==
[2024-12-14] MEDS ORDERED: ONDANSETRON 4 MG/2 ML VIAL IVPUSH ONE (18:07)
[2024-12-14 18:10] VITALS: BP 131/77; PULSE 70; RESP 20; TEMP 98.7; BMI 28.3
[2024-12-14] MEDS ORDERED: MAG HYDROX/AL HYDROX/SIMETH 30 ML UNIT-DOSE CUP ONE (18:36)
[2024-12-14] MEDS ORDERED: ACETAMINOPHEN INJECTION 100 ML ONE (18:36)
[2024-12-14] MEDS ORDERED: ONDANSETRON 4 MG/2 ML VIAL ONE (18:36)
[2024-12-14] MEDS: SODIUM CHLORIDE 0.9% 500 ML INFUS.BAG IV ONE (18:45)
[2024-12-14] MEDS: ACETAMINOPHEN 1000 MG/100 ML BAG IVPB ONE (18:45)
[2024-12-14 19:06] LABS: BASO % 1.9 % (0-2.0); EOS % 0.2 % (0-4.5); HEMATOCRIT 42.1 % (32.4-45.2); HEMOGLOBIN 13.8 GM/dL (10.7-15.3); LYMPH % 14.5 % (8-40); MCH 30.2 pg (25.7-33.7); MCHC 32.9 g/dl (32.0-36.0); MEAN CELL VOLUME 91.8 fl (80-96); MEAN PLT VOLUME 8.7 fl (7.5-11.1); MONO % 6.2 % (3.8-10.2); NEUT % 77.2 % (42.8-82.8); PLATELET COUNT 320 10^3/uL (134-434); RBC 4.58 M/mm3 (3.60-5.2); RDW 13.7 % (11.6-15.6); WHITE BLOOD COUNT 10.6 K/mm3 (4.0-10.0)
[2024-12-14 19:11] LABS: INR 1.09 (0.83-1.09)
[2024-12-14 19:50] LABS: HIV INTERPRETATION NEGATIVE (NEGATIVE)
[2024-12-14 20:19] LABS: EPI CELLS 23 /uL (0-25.1); HYALINE CASTS 0 /uL (0-3.1); URINE APPEARANCE CLEAR; URINE BACTERIA >9,000 /uL (0-1359); URINE BILIRUBIN NEGATIVE (NEGATIVE); URINE COLOR YELLOW; URINE GLUCOSE (UA) NEGATIVE (NEGATIVE); URINE KETONE NEGATIVE (NEGATIVE); URINE LEUK ESTERASE 1+ (NEGATIVE); URINE NITRITE POSITIVE (NEGATIVE); URINE PROTEIN NEGATIVE (NEGATIVE); URINE RBC 28 /uL (0-23.9); URINE UROBILINOGEN 0.2 mg/dL (0.2-1.0); URINE WBC 51 /uL (0-25.8)
[2024-12-14 20:38] LABS: CHLORIDE 105 mmol/L (98-107); POTASSIUM 4.2 mmol/L (3.5-5.1); SODIUM 138 mmol/L (136-145)
[2024-12-14 20:41] LABS: CALCIUM 9.2 mg/dL (8.5-10.1); GLUCOSE,RANDOM 89 mg/dL (74-106)
[2024-12-14 20:42] LABS: ALBUMIN 4.1 g/dl (3.4-5.0); ANION GAP 8 mmol/L (4-13); BLOOD UREA NITROGEN 11.3 mg/dL (7-18); CO2 24 mmol/L (21-32); MAGNESIUM 1.8 mg/dL (1.8-2.4)
[2024-12-14 20:44] LABS: CREATININE 0.7 mg/dL (0.55-1.3)
[2024-12-14 20:45] LABS: PHOSPHOROUS 2.4 mg/dL (2.5-4.9); SGOT/AST 16 U/L (15-37); SGPT/ALT 16 U/L (13-61)
[2024-12-14 20:46] LABS: BILIRUBIN,TOTAL 0.4 mg/dL (0.2-1); TOT PROT 7.8 g/dl (6.4-8.2)
[2024-12-14 20:47] LABS: ALK PHOS 108 U/L (45-117)
[2024-12-14] MEDS ORDERED: morphine CARPU-JECT 4 MG/1 ML DISP.SYRIN IVPUSH ONE (21:21)
[2024-12-14] MEDS ORDERED: diazePAM CARPU-JECT 10 MG/2 ML DISP.SYRIN ONE (21:22)
[2024-12-14] MEDS ORDERED: diazePAM CARPU-JECT 10 MG/2 ML DISP.SYRIN IVPUSH ONE (21:22)
[2024-12-14] MEDS ORDERED: morphine SULFATE 4 MG/ML VIAL ONE (21:23)
[2024-12-14] MEDS ORDERED: FAMOTIDINE 20 MG/50 ML IVPB 20 MG/50 ML MG IVPB ONE (22:10)
[2024-12-14] MEDS: FAMOTIDINE 20 MG/50 ML IVPB 20 MG/50 ML MG IVPB ONE (22:42)
[2024-12-14] MEDS: MAG HYDROX/AL HYDROX/SIMETH 30 ML UNIT-DOSE CUP PO ONE (22:42)
== END 2024-12-15 01:49 | disposition left against medical advice (07) ==
LOC: JER 17:46
PROC: 3E033GC Introduction of Other Therapeutic Substance into Peripheral Vein, Percutaneous Approach (ICD-10-PCS; principal; 2024-12-14)
PROC: 3E033NZ Introduction of Analgesics, Hypnotics, Sedatives into Peripheral Vein, Percutaneous Approach (ICD-10-PCS; 2024-12-14)
DX: N39.0 Urinary tract infection, site not specified (principal); R10.11 Right upper quadrant pain; R10.13 Epigastric pain; R10.30 Lower abdominal pain, unspecified; R06.00 Dyspnea, unspecified; F41.9 Anxiety disorder, unspecified
CPT/HCPCS: 36415; 71275-TC; 74177-TC; 80053; 81003; 82550; 83735; 84100; 84484; 84703; 85025; 85610; 86803; 87086; 87186; 87389; 93005; 93010; 99291; J0131; Q9967

== ENCOUNTER 2024-12-15 12:50 | Emergency (ER) | payer OTHER ==
[2024-12-15 13:14] VITALS: BP 145/79; PULSE 101; RESP 16; TEMP 98.8
[2024-12-15] MEDS: ACETAMINOPHEN 1000 MG/100 ML BAG IVPB ONE (14:24)
[2024-12-15] MEDS: FAMOTIDINE 20 MG/50 ML IVPB 20 MG/50 ML MG IVPB ONE (14:25)
[2024-12-15] MEDS ORDERED: MAG HYDROX/AL HYDROX/SIMETH 30 ML UNIT-DOSE CUP ONE (14:32)
[2024-12-15] MEDS: MAG HYDROX/AL HYDROX/SIMETH 30 ML UNIT-DOSE CUP PO ONE (14:33)
== END 2024-12-15 16:17 | disposition home or self-care (01) ==
LOC: JER 12:50
DX: F41.9 Anxiety disorder, unspecified (principal); R10.11 Right upper quadrant pain; R10.13 Epigastric pain; R10.30 Lower abdominal pain, unspecified
CPT/HCPCS: 99283-25

== ENCOUNTER 2025-04-11 18:55 | Emergency (ER) | payer OTHER ==
[2025-04-11 19:10] VITALS: BP 112/75; PULSE 87; RESP 16; TEMP 98.4; BMI 28.1
[2025-04-11] MEDS: ACETAMINOPHEN 500 MG TABLET (FP) PO ONE (20:38)
== END 2025-04-11 20:38 | disposition home or self-care (01) ==
LOC: JERFT 18:55
DX: M25.532 Pain in left wrist (principal); W06.XXXA Fall from bed, initial encounter
CPT/HCPCS: 73110-TC-LT-FY; 99283-25

== ENCOUNTER 2025-04-14 18:28 | Emergency (ER) | payer OTHER ==
[2025-04-14 19:08] VITALS: BP 121/81; PULSE 86; RESP 18; TEMP 99; BMI 19.3
[2025-04-14] MEDS ORDERED: ONDANSETRON 4 MG/2 ML VIAL ONE (19:23)
[2025-04-14] MEDS ORDERED: ACETAMINOPHEN INJECTION 100 ML ONE (19:23)
[2025-04-14] MEDS: ONDANSETRON 4 MG/2 ML VIAL IVPUSH ONE (19:38)
[2025-04-14] MEDS: ACETAMINOPHEN 1000 MG/100 ML BAG IVPB ONE (19:39)
[2025-04-14 20:00] LABS: ABSOLUTE IMMATURE GRANULOCYTES 0.16 x10^3/uL (0.0-0.031); BASOPHILS # 0.06 x10^3/uL (0.01-0.08); HEMATOCRIT 36.4 % (34.1-44.9); HEMOGLOBIN 12.7 g/dL (11.2-15.7); MCHC 34.9 g/dl (32.2-35.5); MEAN CELL VOLUME 87.9 fl (79.4-94.8); MEAN PLT VOLUME 10.5 fl (9.4-12.3); MONOCYTE # 0.81 x10^3/uL (0.24-0.86); MONOCYTE % 3.7 % (4.7-12.5); PLATELET COUNT 295 x10^3/uL (182-369); RDW 12.3 % (12.1-16.8)
[2025-04-14 20:21] LABS: CHLORIDE 106 mmol/L (98-107); POTASSIUM 3.3 mmol/L (3.5-5.1); SODIUM 137 mmol/L (136-145)
[2025-04-14 20:24] LABS: CALCIUM 9.3 mg/dL (8.5-10.1)
[2025-04-14 20:25] LABS: EPI CELLS >36 /uL (0-25.1); HYALINE CASTS 1 /uL (0-3.1); PH,URINE 6.5 (5.0-8.0); URINE APPEARANCE CLOUDY; URINE BACTERIA >9,000 /uL (0-1359); URINE BILIRUBIN NEGATIVE (NEGATIVE); URINE COLOR YELLOW; URINE GLUCOSE (UA) NEGATIVE (NEGATIVE); URINE KETONE 1+ (NEGATIVE); URINE LEUK ESTERASE 3+ (NEGATIVE); URINE NITRITE NEGATIVE (NEGATIVE); URINE PROTEIN TRACE (NEGATIVE); URINE RBC 14 /uL (0-23.9); URINE WBC 519 /uL (0-25.8)
[2025-04-14 20:25] LABS: ALBUMIN 3.4 g/dl (3.4-5.0); ANION GAP 8 mmol/L (4-13); BLOOD UREA NITROGEN 10.4 mg/dL (7-18); CO2 23 mmol/L (21-32); GLUCOSE,RANDOM 94 mg/dL (74-106); MAGNESIUM 1.7 mg/dL (1.8-2.4)
[2025-04-14 20:28] LABS: CREATININE 0.7 mg/dL (0.55-1.3); SGOT/AST 14 U/L (15-37); SGPT/ALT 13 U/L (13-61)
[2025-04-14 20:29] LABS: BILIRUBIN,TOTAL 0.9 mg/dL (0.2-1); TOT PROT 6.9 g/dl (6.4-8.2)
[2025-04-14 20:31] LABS: ALK PHOS 101 U/L (45-117)
[2025-04-14] MEDS ORDERED: POTASSIUM CHLORIDE ORAL LIQUID 20 MEQ/15 ML ONE (20:53)
[2025-04-14] MEDS ORDERED: CEFTRIAXONE 1 GM/50 ML BAG ONE (20:53)
[2025-04-14] MEDS ORDERED: MAGNESIUM 1GM/D5W - 1 GM/100 ML IVPB IVPB ONE (20:54)
[2025-04-14] MEDS: CEFTRIAXONE 1 GM in DEXTROSE 5%-WATER - 100 ML IVPB ONE (21:36)
[2025-04-14] MEDS: POTASSIUM CHLORIDE ORAL LIQUID 20 MEQ/15 ML PO ONE (21:36)
[2025-04-14] MEDS ORDERED: predniSONE 20 MG TABLET (UD) ONE (22:08)
[2025-04-14] MEDS: predniSONE 20 MG TABLET (UD) PO ONE (22:10)
[2025-04-14] MEDS ORDERED: CEFPODOXIME PROXETIL 200 MG TABLET PO ONE (22:29)
[2025-04-14] MEDS ORDERED: hydrOXYzine PAMOATE 25 MG CAPSULE (FP) PO ONE (22:38)
[2025-04-14] MEDS: MAGNESIUM 1GM/D5W - 1 GM/100 ML IVPB IVPB ONE (22:41)
[2025-04-14] MEDS: hydrOXYzine PAMOATE 25 MG CAPSULE (FP) PO ONE (22:41)
[2025-04-14] MEDS: hydrOXYzine HCL 50 MG TABLET PO ONE (22:42)
== END 2025-04-14 22:56 | disposition left against medical advice (07) ==
LOC: JER 18:28
PROC: 3E03329 Introduction of Other Anti-infective into Peripheral Vein, Percutaneous Approach (ICD-10-PCS; principal; 2025-04-14)
PROC: 3E033NZ Introduction of Analgesics, Hypnotics, Sedatives into Peripheral Vein, Percutaneous Approach (ICD-10-PCS; 2025-04-14)
PROC: 3E033GC Introduction of Other Therapeutic Substance into Peripheral Vein, Percutaneous Approach (ICD-10-PCS; 2025-04-14)
DX: N12 Tubulo-interstitial nephritis, not specified as acute or chronic (principal); M54.50 Low back pain, unspecified; R50.9 Fever, unspecified; L50.0 Allergic urticaria; T50.8X5A Adverse effect of diagnostic agents, initial encounter
CPT/HCPCS: 36415; 74177-TC; 80053; 81003; 83690; 83735; 84702; 85025; 87086; 96365; 96375; 99285-25